=== PATIENT | female | born 2000 | race Hispanic/Latino ===

== ENCOUNTER 2022-04-13 16:50 | Day surgery (SDC) | payer OTHER ==
[2022-04-13] MEDS ORDERED: hydrALAZINE 20 MG/ML VIAL SLOW IVP PRN (17:34)
[2022-04-13 18:02] VITALS: BMI 36.3
[2022-04-13] MEDS ORDERED: Lactated Ringer's 1,000 ML IV SCH ×2 (18:30)
== END 2022-04-13 20:16 | disposition home or self-care (01) ==
LOC: CSHLD/OP 16:50
PROVIDERS: ATTEND Obstetrics & Gynecology
DX: O41.03X0 Oligohydramnios, third trimester, not applicable or unspecified (principal); O99.283 Endocrine, nutritional and metabolic diseases complicating pregnancy, third trimester; E03.9 Hypothyroidism, unspecified; Z3A.35 35 weeks gestation of pregnancy; Z86.16 Personal history of COVID-19; Z79.82 Long term (current) use of aspirin
CPT/HCPCS: 59025; 76819; 99282

== ENCOUNTER 2022-04-17 17:48 | Inpatient (IN) | payer MEDICAID, OTHER, SELFPAY ==
[~2022-04-17 17:48] MED LIST: Bupivacaine 0.25% HCL 30 ML VIAL ONE; Terbutaline Sulfate 1 MG/ML VIAL ONE
[2022-04-17] MEDS ORDERED: hydrALAZINE 20 MG/ML VIAL SLOW IVP PRN (19:32)
[2022-04-17] MEDS ORDERED: Lactated Ringer's 1,000 ML IV SCH ×2 (19:45→22:00)
[2022-04-17 19:47] VITALS: BMI 38.7
[2022-04-17 20:36] LABS: Bilirubin Neg (Negative); Blood, Urine 250 (Negative); Clarity Cloudy (Clear); Glucose, Urine (Dipstick) Normal (Negative); Ketone, Urine Negative (Negative); Leukocyte 100 (Negative); Nitrite Negative (Negative); Protein, Urine (Dipstick) 30 mg/dl (Neg-Trace); Urobilinogen Normal mg/dL (Less than 2)
[2022-04-17 20:38] LABS: Urine Culture Reflex No No
[2022-04-17 20:46] LABS: Bacteria/HPF 2+ HPF (None Seen); Fetal Membranes Rupture RUPTURE DETECTED (No Rupture)
[2022-04-17] MEDS ORDERED: Ondansetron PF 4 MG/2 ML Vial IVP PRN ×2 (21:28→23:34)
[2022-04-17] MEDS ORDERED: Promethazine HCl 25 MG/ML VIAL IM PRN ×2 (21:28→23:34)
[2022-04-17] MEDS ORDERED: Lidocaine 1% (PF) 30 ML VIAL SC PRN (21:28)
[2022-04-17] MEDS ORDERED: Penicillin G Potassium 5 MILL.UNITS in Sodium Chloride 0.9% 100 ML IVPB SCH (22:00)
[2022-04-17 22:06] LABS: Hemoglobin 12.4 g/dL (12.0-15.5); Mean Corpuscular HGB CONC 34.1 g/dL (32.0-36.0); Mean Corpuscular Hemoglobin 32.2 pg (27.0-33.0); Mean Corpuscular Volume 94.5 fl (81.6-98.3); Mean Platelet Volume 11.1 fl (7.4-10.4); Platelet Count 190 10x3/uL (150-450); RBC Distribution Width 13.7 % (11.5-14.5); Red Blood Cell (RBC) Count 3.85 10x6/uL (3.90-5.03); White Blood Cell (WBC) Count 9.7 10x3/uL (3.5-10.5)
[2022-04-17 22:41] LABS: Hep B Surf Ag Non-Reactive S/CO (NonReactive); Syphilis Antibody Nonreactive (Nonreactive); Syphilis Antibody Index 0.02 S/CO (<1.00 Non-Reactive)
[2022-04-17 22:47] LABS: HBSAg Index 0.17 S/CO (0-0.99)
[2022-04-17] MEDS ORDERED: Fentanyl 2 mcg/Bup 0.1% Cadd 100 ML ONE (22:52)
[2022-04-17] MEDS ORDERED: ePHEDrine Sulfate 50 MG/10 ML VIAL SLOW IVP PRN (23:34)
[2022-04-17] MEDS ORDERED: diphenhydrAMINE 50 MG/ML VIAL IVP PRN (23:34)
[2022-04-17] MEDS ORDERED: Lactated Ringer's 500 ML IV PRN (23:34)
[2022-04-17] MEDS ORDERED: Moisturizing Cream (Eucerin) 113 GM JAR TOP PRN (23:34)
[2022-04-17] MEDS ORDERED: Acetaminophen 325 MG TAB PO PRN (23:34)
[2022-04-17] MEDS ORDERED: Naloxone HCl 0.4 mg/ml Vial IVP PRN ×2 (23:34)
[2022-04-17] MEDS ORDERED: Communication Order-Pharmacy FS SCH (23:45)
[2022-04-17] MEDS ORDERED: Fentanyl 2 mcg/Bupivacaine 0.1% Cassette 100 ML EPIDURAL SCH (23:45)
[2022-04-17 23:57] LABS: SARS-CoV-2 NAA Rapid Test Not Detected (NotDetected)
[2022-04-18] MEDS: NS w/ Oxytocin 30 units 500 ML IV SCH ×2 (00:20→00:51)
[2022-04-18] MEDS ORDERED: Milk Of Magnesia 30 ML UDCUP PO PRN (00:41)
[2022-04-18] MEDS ORDERED: hydrALAZINE 20 MG/ML VIAL SLOW IVP PRN (00:41)
[2022-04-18] MEDS ORDERED: Boostrix 0.5 ML (Tdap) VIAL IM ONE (00:41)
[2022-04-18] MEDS ORDERED: Bisacodyl 10 MG SUPP PR PRN (00:41)
[2022-04-18] MEDS ORDERED: Penicillin G 2.5 MILL.units 2.5 MILL.UNITS in Premix Bag 1 BAG IVPB SCH (02:00)
[2022-04-18] MEDS ORDERED: Ibuprofen 800 MG TAB PO SCH (06:00)
[2022-04-18] MEDS ORDERED: Acetaminophen 325 MG TAB PO PRN (06:04)
[2022-04-18] MEDS: Ferrous Sulfate 325 MG TAB PO SCH ×2 (08:25→17:29)
[2022-04-18] MEDS: Docusate 100 MG CAP PO SCH ×2 (09:10→20:39)
[2022-04-19] MEDS: Ferrous Sulfate 325 MG TAB PO SCH ×2 (08:44→16:29)
[2022-04-19] MEDS: Docusate 100 MG CAP PO SCH ×2 (09:01→21:16)
[2022-04-19] MEDS: Ibuprofen 800 MG TAB PO PRN ×2 (09:09→14:03)
[2022-04-20] MEDS: Ferrous Sulfate 325 MG TAB PO SCH (07:50)
[2022-04-20] MEDS: Docusate 100 MG CAP PO SCH (09:04)
[2022-04-20] MEDS: Ibuprofen 800 MG TAB PO PRN (09:04)
[2022-04-20 11:54] VITALS: BP 119/74; TEMP 97.1
== END 2022-04-20 17:35 | disposition home or self-care (01) | DRG 807 ==
LOC: CSHLD/OP 17:48 → CSHLD 22:38 → CSHPP 04-18 07:55
PROVIDERS: ADMIT Obstetrics & Gynecology; ATTEND Obstetrics & Gynecology
PROC: 10E0XZZ Delivery of Products of Conception, External Approach (ICD-10-PCS; principal; 2022-04-17)
PROC: 0UQMXZZ Repair Vulva, External Approach (ICD-10-PCS; 2022-04-17)
DX: O42.013 Preterm premature rupture of membranes, onset of labor within 24 hours of rupture, third trimester (principal); Z37.0 Single live birth; Z3A.35 35 weeks gestation of pregnancy; Z79.82 Long term (current) use of aspirin; Z79.890 Hormone replacement therapy; Z79.899 Other long term (current) drug therapy; O71.82 Other specified trauma to perineum and vulva; Z20.822 Contact with and (suspected) exposure to COVID-19
CPT/HCPCS: 36415; 81001; 84112; 85027; 86780; 86850; 86900; 86901; 87086; 87340; 87480; 87510; 87660; 88307; 99285; J2405; J2540; J2590; J3105; J3490; J7120; S0020; U0002